=== PATIENT | male | born 1945 | race Caucasian/White ===

== ENCOUNTER 2018-11-22 11:58 | Outpatient (CLI) | payer MEDICARE, BC ==
[2018-11-22] MEDS ORDERED: vytorin PO (12:40)
[2018-11-22] MEDS ORDERED: DOXA2TAB9 PO (12:40)
[2018-11-22] MEDS ORDERED: AMLO10TA8 PO (12:40)
[2018-11-22] MEDS ORDERED: LISI-167 PO (12:40)
[2018-11-22] MEDS ORDERED: CARBIDOPA LEVODOPA PO (12:40)
[2018-11-22] MEDS ORDERED: norco PO (12:49)
[2018-11-22 13:12] LABS: BASOPHILS # (AUTO) 0.03 x10^3/uL (0-0.1); BASOPHILS % (AUTO) 1 % (0-1); EOSINOPHILS # (AUTO) 0.18 x10^3/uL (0-0.4); EOSINOPHILS % (AUTO) 3 % (1-7); LYMPHOCYTES # (AUTO) 1.81 x10^3/uL (1-3.4); LYMPHOCYTES % (AUTO) 30 % (22-44); MD NO; MEAN CORPUSCULAR HEMOGLOBIN 30.6 pg (27.5-34.5); MEAN CORPUSCULAR HGB CONC 33.2 g/dL (33.2-36.2); MEAN PLATELET VOLUME 7.1 fL (7.4-10.4); MONOCYTES # (AUTO) 0.49 x10^3/uL (0.2-0.8); MONOCYTES % (AUTO) 8 % (2-9); NEUTROPHILS # (AUTO) 3.53 x10^3/uL (1.8-6.8); NEUTROPHILS % (AUTO) 58 % (42-75); PLATELET COUNT 194 x10^3/uL (130-400); RED BLOOD COUNT 5.95 x10^6/uL (4.38-5.82); RED CELL DISTRIBUTION WIDTH 16.3 % (9.4-14.8)
[2018-11-22 13:18] LABS: INTERNATIONAL NORMALIZED RATIO 1.01 (0.93-1.1); PROTHROMBIN TIME 10.6 Seconds (9.6-11.5)
[2018-11-22 13:19] LABS: ALBUMIN 4.2 g/dL (3.4-5.0); CHLORIDE 109 mmol/L (98-107)
[2018-11-22 13:26] LABS: ALANINE AMINOTRANSFERASE 38 U/L (12-78); ALKALINE PHOSPHATASE 42 U/L (45-117); BILIRUBIN,TOTAL 1.9 mg/dL (0.2-1.0); CALCIUM 9.1 mg/dL (8.5-10.1); CREATININE 1.22 mg/dL (0.7-1.3); TOTAL PROTEIN 7.8 g/dL (6.4-8.2)
[2018-11-22 14:36] LABS: ANION GAP 5 mmol/L (5-15)
== END 2018-11-22 23:59 | disposition home or self-care (01) ==
LOC: STAR 11:58
PROVIDERS: ATTEND Neurological Surgery
DX: Z01.818 Encounter for other preprocedural examination (principal); I10 Essential (primary) hypertension; M48.061 Spinal stenosis, lumbar region without neurogenic claudication; Z88.8 Allergy status to other drugs, medicaments and biological substances
CPT/HCPCS: 36415; 71046; 80053; 85025; 85610; 85730

== ENCOUNTER 2018-11-29 06:53 | Inpatient (IN) | payer MEDICARE, BC ==
[~2018-11-29] VITALS: Ht 177.8 cm; Wt 100.9 kg
[~2018-11-29 06:53] MED LIST: AMLO10TA8 PO; BACITRACIN 50,000 UNIT ONE; BUPIVACAINE/PF-EPI 0.5% 1:200K ONE; CARBIDOPA LEVODOPA PO; DOXA2TAB9 PO; LISI-167 PO; METHYLENE BLUE 10 MG/ML 10ML ONE; THROMBIN 20,000 UNIT VIAL TP ONE; norco PO; vytorin PO
[2018-11-29] MEDS ORDERED: LACTATED RINGERS 1,000 ML IV SCH (07:48)
[2018-11-29] MEDS ORDERED: FENTANYL PF 250 MCG/5ML ONE (08:15)
[2018-11-29] MEDS ORDERED: MIDAZOLAM 1 MG/ML, 2ML ONE (08:15)
[2018-11-29 08:21] VITALS: BP 134/83
[2018-11-29] MEDS ORDERED: CARB1TAB47 PO (08:21)
[2018-11-29] MEDS ORDERED: EZET1TAB30 PO (08:21)
[2018-11-29] MEDS ORDERED: VASOPRESSIN 20 UNIT/ML, 1ML ONE (09:34)
[2018-11-29] MEDS ORDERED: CEFAZOLIN 1,000 MG ONE (09:34)
[2018-11-29] MEDS ORDERED: DEXAMETHASONE 4 MG/ML, 1ML ONE (09:34)
[2018-11-29] MEDS ORDERED: PROPOFOL 10 MG/ML, 20ML ONE (09:34)
[2018-11-29] MEDS ORDERED: ROCURONIUM 10 MG/ML,10ML ONE (09:34)
[2018-11-29] MEDS ORDERED: PHENYLEPHRINE 10 MG/ML ONE (09:34)
[2018-11-29] MEDS ORDERED: EPINEPHRINE 1 MG/ML, 1ML ONE (09:34)
[2018-11-29] MEDS ORDERED: ONDANSETRON 2MG/ML, 2ML ONE (09:34)
[2018-11-29] MEDS ORDERED: EPHEDRINE 50 MG/ML, 1ML ONE (09:34)
[2018-11-29] MEDS ORDERED: SUCCINYLCHOLINE 20 MG/ML, 10ML ONE (09:34)
[2018-11-29] MEDS ORDERED: CALCIUM CHLORIDE 10%, 10ML SYR ONE (10:15)
[2018-11-29] MEDS ORDERED: CALCIUM CHLORIDE 10%, 10ML SYR IVPush ONE (10:17)
[2018-11-29] MEDS ORDERED: THROMBIN 20,000 UNIT VIAL TP ONE ×3 (10:17→11:38)
[2018-11-29] MEDS ORDERED: BUPIVACAINE/PF-EPI 0.5% 1:200K INFIL ONE (10:17)
[2018-11-29] MEDS ORDERED: METHYLENE BLUE 10 MG/ML 10ML INJ ONE (10:17)
[2018-11-29] MEDS ORDERED: BACITRACIN 50,000 UNIT IM ONE (10:17)
[2018-11-29] MEDS ORDERED: METOCLOPRAMIDE 5 MG/ML, 2ML IV PRN (11:00)
[2018-11-29] MEDS ORDERED: HYDROmorphone 1 MG/ML, 1ML IV PRN (11:00)
[2018-11-29] MEDS ORDERED: PROMETHAZINE 25 MG/ML, 1ML IV PRN (11:00)
[2018-11-29] MEDS ORDERED: MEPERIDINE/PF 25MG/0.5ML IVPush PRN (11:00)
[2018-11-29] MEDS ORDERED: ONDANSETRON 2MG/ML, 2ML IVPush PRN (11:00)
[2018-11-29] MEDS ORDERED: OXYcodone 5 MG/5 ML ORAL.SOL UDC PO PRN (11:00)
[2018-11-29] MEDS ORDERED: ALBUTEROL SULFATE 2.5 MG/3 ML NPPB PRN (11:00)
[2018-11-29] MEDS ORDERED: LABETALOL 5MG/ML, 20ML IV PRN (11:00)
[2018-11-29] MEDS ORDERED: hydrALAzine 20 MG/ML, 1ML IV PRN (11:00)
[2018-11-29] MEDS ORDERED: FENTANYL PF 100 MCG/2ML IV PRN (11:00)
[2018-11-29] MEDS ORDERED: KETOROLAC 30 MG/1 ML IV PRN (11:00)
[2018-11-29] MEDS ORDERED: NEOSPORIN OINT, 15GM ONE (12:04)
[2018-11-29] MEDS ORDERED: FENTANYL PF 100 MCG/2ML ONE (13:45)
[2018-11-29] MEDS: METHOCARBAMOL 1,000 MG in DEXTROSE 5% 100 ML IV SCH ×2 (14:25→23:14)
[2018-11-29 15:00] VITALS: BP 99/65
[2018-11-29] MEDS ORDERED: OXYcodone/APAP 5/325MG TABLET ONE (15:24)
[2018-11-29] MEDS ORDERED: HYDROcodone/APAP 5/325 TABLET PO PRN (15:30)
[2018-11-29] MEDS ORDERED: MAGNESIUM HYDROXIDE 8%, 30ML UDC PO PRN (15:30)
[2018-11-29] MEDS ORDERED: PROMETHAZINE 25 MG/ML, 1ML IM PRN (15:30)
[2018-11-29] MEDS ORDERED: DIPHENHYDRAMINE 50 MG CAPSULE PO PRN (15:30)
[2018-11-29] MEDS ORDERED: BISACODYL 10 MG SUPP PR PRN (15:30)
[2018-11-29] MEDS ORDERED: DIPHENHYDRAMINE 50 MG/ML, 1ML IM PRN (15:30)
[2018-11-29] MEDS ORDERED: ONDANSETRON 2MG/ML, 2ML IV PRN (15:30)
[2018-11-29] MEDS ORDERED: DIPHENHYDRAMINE 50 MG/ML, 1ML IVPush PRN (15:30)
[2018-11-29] MEDS ORDERED: morphine SULFATE 10 MG/ML, 1ML IV PRN (16:00)
[2018-11-29] MEDS: NS + 20MEQ KCL 1,000 ML IV SCH (16:25)
[2018-11-29] MEDS: OXYcodone/APAP 5/325MG TABLET PO PRN ×2 (16:25→16:30)
[2018-11-29] MEDS: CEFAZOLIN PMX 2GM/50ML 50 ML IVPB SCH (17:55)
[2018-11-29 19:42] VITALS: BP 103/60
[2018-11-29] MEDS: SIMVASTATIN 20 MG TABLET PO SCH (21:00)
[2018-11-29] MEDS: EZETIMIBE 10 MG TABLET PO SCH (21:39)
[2018-11-29] MEDS: CARBIDOPA/LEVODOPA 25 MG/100 MG TABLET PO SCH (21:39)
[2018-11-30 00:12] VITALS: BP 101/54
[2018-11-30] MEDS: CEFAZOLIN PMX 2GM/50ML 50 ML IVPB SCH (01:50)
[2018-11-30] MEDS: NS + 20MEQ KCL 1,000 ML IV SCH ×2 (01:50→14:55)
[2018-11-30 04:02] VITALS: BP 107/67
[2018-11-30] MEDS: OXYcodone/APAP 5/325MG TABLET PO PRN ×5 (04:11→22:12)
[2018-11-30 06:04] LABS: BASOPHILS # (AUTO) 0.03 x10^3/uL (0-0.1); BASOPHILS % (AUTO) 0 % (0-1); EOSINOPHILS # (AUTO) 0.08 x10^3/uL (0-0.4); EOSINOPHILS % (AUTO) 1 % (1-7); LYMPHOCYTES % (AUTO) 14 % (22-44); MD NO; MEAN CORPUSCULAR HEMOGLOBIN 31.9 pg (27.5-34.5); MEAN CORPUSCULAR HGB CONC 34.3 g/dL (33.2-36.2); MEAN CORPUSCULAR VOLUME 93.1 fL (81-97); MEAN PLATELET VOLUME 7.1 fL (7.4-10.4); MONOCYTES # (AUTO) 0.75 x10^3/uL (0.2-0.8); MONOCYTES % (AUTO) 8 % (2-9); NEUTROPHILS # (AUTO) 7.53 x10^3/uL (1.8-6.8); NEUTROPHILS % (AUTO) 77 % (42-75); PLATELET COUNT 159 x10^3/uL (130-400); RED CELL DISTRIBUTION WIDTH 15.9 % (9.4-14.8)
[2018-11-30 06:09] LABS: ANION GAP 7 mmol/L (5-15); CALCIUM 8.1 mg/dL (8.5-10.1); CHLORIDE 110 mmol/L (98-107); CREATININE 0.99 mg/dL (0.7-1.3)
[2018-11-30] MEDS: METHOCARBAMOL 1,000 MG in DEXTROSE 5% 100 ML IV SCH (06:18)
[2018-11-30 06:55] VITALS: BP 109/70
[2018-11-30] MEDS: SENNA/DOCUSATE TABLET PO SCH (08:31)
[2018-11-30] MEDS: AMLODIPINE 10 MG TAB PO SCH (08:31)
[2018-11-30] MEDS: DOXAZOSIN 2MG TABLET PO SCH (08:32)
[2018-11-30] MEDS: LISINOPRIL 10 MG TABLET PO SCH (08:32)
[2018-11-30] MEDS: NITROFURANTOIN (MACROBID) 100 MG CAPSULE PO SCH (08:32)
[2018-11-30 13:45] VITALS: BP 112/61
[2018-11-30 18:24] VITALS: BP 156/83
[2018-11-30] MEDS: CYCLOBENZAPRINE 10 MG TABLET PO PRN (22:11)
[2018-11-30] MEDS: CARBIDOPA/LEVODOPA 25 MG/100 MG TABLET PO SCH (22:11)
[2018-11-30] MEDS: SIMVASTATIN 20 MG TABLET PO SCH (22:12)
[2018-11-30] MEDS: EZETIMIBE 10 MG TABLET PO SCH (22:12)
[2018-12-01] MEDS: NS + 20MEQ KCL 1,000 ML IV SCH ×2 (00:58→11:00)
[2018-12-01 02:58] VITALS: BP 154/92
[2018-12-01] MEDS: OXYcodone/APAP 5/325MG TABLET PO PRN ×3 (02:59→11:04)
[2018-12-01] MEDS: CYCLOBENZAPRINE 10 MG TABLET PO PRN (06:43)
[2018-12-01 07:31] VITALS: BP 133/77
[2018-12-01] MEDS: LISINOPRIL 10 MG TABLET PO SCH (07:46)
[2018-12-01] MEDS: DOXAZOSIN 2MG TABLET PO SCH (07:46)
[2018-12-01] MEDS: NITROFURANTOIN (MACROBID) 100 MG CAPSULE PO SCH (07:46)
[2018-12-01] MEDS: SENNA/DOCUSATE TABLET PO SCH (07:46)
[2018-12-01] MEDS: AMLODIPINE 10 MG TAB PO SCH (07:46)
[2018-12-01] MEDS ORDERED: CYCL-259 PO (09:35)
[2018-12-01] MEDS ORDERED: DOCU-131 PO (09:36)
[2018-12-01] MEDS ORDERED: NITR100C56 PO (09:37)
[2018-12-01] MEDS ORDERED: OXYC-307 PO (09:38)
[2018-12-01 11:05] VITALS: BP 158/81
== END 2018-12-01 12:00 | disposition home or self-care (01) | DRG 454 ==
LOC: ORIP 06:53 → 4NOR 14:57 → DCLOUNGE 12-01 11:42
PROVIDERS: ADMIT Neurological Surgery; ATTEND Neurological Surgery
PROC: 0SG00AJ Fusion of Lumbar Vertebral Joint with Interbody Fusion Device, Posterior Approach, Anterior Column, Open Approach (ICD-10-PCS; 2018-11-29)
PROC: 0SB20ZZ Excision of Lumbar Vertebral Disc, Open Approach (ICD-10-PCS; 2018-11-29)
PROC: 4A11X4G Monitoring of Peripheral Nervous Electrical Activity, Intraoperative, External Approach (ICD-10-PCS; 2018-11-29)
PROC: 0SG00J1 Fusion of Lumbar Vertebral Joint with Synthetic Substitute, Posterior Approach, Posterior Column, Open Approach (ICD-10-PCS; 2018-11-29)
PROC: 0SG3071 Fusion of Lumbosacral Joint with Autologous Tissue Substitute, Posterior Approach, Posterior Column, Open Approach (ICD-10-PCS; principal; 2018-11-29 09:00)
PROC: 0T2BX0Z Change Drainage Device in Bladder, External Approach (ICD-10-PCS; 2018-12-01)
DX: M48.061 Spinal stenosis, lumbar region without neurogenic claudication (principal); S37.33XA Laceration of urethra, initial encounter; M48.07 Spinal stenosis, lumbosacral region; M51.37 Other intervertebral disc degeneration, lumbosacral region; M53.2X6 Spinal instabilities, lumbar region; M43.16 Spondylolisthesis, lumbar region; M10.9 Gout, unspecified; E78.00 Pure hypercholesterolemia, unspecified; Z96.641 Presence of right artificial hip joint; Y65.8 Other specified misadventures during surgical and medical care; Z82.49 Family history of ischemic heart disease and other diseases of the circulatory system; Y92.89 Other specified places as the place of occurrence of the external cause
CPT/HCPCS: 36415; 72100; 80048; 85025; 86850; 86900; 93005; C1713; G0378; J0171; J0690; J1100; J2250; J2405; J2704; J3010; J3480; C1763; J0330; J2370; J2800; J7120; Q9968